=== PATIENT | female | born 1995 | race Two or more races ===

== ENCOUNTER 2022-03-05 19:11 | Emergency (ER) | payer OTHER ==
[~2022-03-05] VITALS: Ht 152.4 cm; Wt 56.7 kg
[2022-03-05] MEDS ORDERED: PROAIR RESPICL90 MCG (19:49)
[2022-03-05] MEDS ORDERED: ZITHROMAX500 MG PO (23:03)
[2022-03-05] MEDS ORDERED: TUSNEL LIQUID178 ML PO (23:03)
== END 2022-03-06 00:11 | disposition home or self-care (01) ==
LOC: ER 19:11
DX: J02.9 Acute pharyngitis, unspecified (principal); A49.3 Mycoplasma infection, unspecified site; Z20.822 Contact with and (suspected) exposure to COVID-19